=== PATIENT | female | born 1965 | race African-American/Black ===

== ENCOUNTER → 2016-11-18 | Outpatient (CLI) | payer BC ==
[2014-10-05 14:52] VITALS: BP 148/86
[~2016-11-18] MED LIST: TRIA1CAP3 PO
--- NOTE | 2016-11-18 13:19 | KCIC ---
Ultrasound thyroid Indication: Thyroid nodule Technique: Multiple real-time grayscale sonographic images were obtained over the thyroid. Findings: The right lobe of the thyroid measures 4.5 x 1.7 x 1.6 centimeters. There are several very small hypoechoic cystic nodules likely representing colloid cysts. The lobe measures 4.4 x 1.5 x 1.7 centimeters. There is a hypoechoic knee nodule within internal cystic component that measures 2.1 x 1.4 x 1.7 centimeters. Some internal blood flow is noted within the solid components. The isthmus measures 3 millimeters. Impression: - There is 2.1 centimeter hypoechoic solid nodule with internal cystic component in the inferior pole of the left lobe of the thyroid. Follow-up or biopsy is recommended. Electronically signed by: Daniel Wilson (Nov 18, 2016 13:17:58)
--- NOTE | 2016-11-18 13:26 | KCIC ---
Ultrasound Pelvis Indication:Reason For Study Reason: F/U FIBROIDS PREV IMAGING AT [facility] / [facility]. Instructions: / History: Technique: Multiple real-time grayscale images were obtained over the pelvis . Color Doppler imaging was utilized. Findings: The uterus is enlarged measuring 22.4 x 8.8 x 9.0 cm. There are numerous myometrial masses likely representing fibroids, the largest of which is seen in the right fundus measuring 11.7 centimeters. A lower uterine segment fibroid measures 10 centimeters. The endometrium is also within normal limits measuring 11 mm in thickness. The ovaries are not identified. No pelvic free fluid is identified. Impression: - Enlarged fibroid uterus. Electronically signed by: Daniel Wilson (Nov 18, 2016 13:23:42)
== END | disposition home or self-care (01) ==
LOC: KCIC US 12:09
PROVIDERS: ATTEND Internal Medicine
DX: R19.00 Intra-abdominal and pelvic swelling, mass and lump, unspecified site (principal); D25.9 Leiomyoma of uterus, unspecified
CPT/HCPCS: 76536; 76856

== ENCOUNTER → 2017-04-04 | Outpatient (CLI) | payer BC ==
[2014-10-05 14:52] VITALS: BP 148/86
--- NOTE | 2017-04-04 17:55 | CARD ---
APPROVED REPORT EXAM: Two-dimensional and M-mode echocardiogram with Doppler and color Doppler. Other Information Quality : GoodHR: 85bpm Rhythm : NSR INDICATION Tricuspid regurgitation RISK FACTORS Hypertension Obesity 2D DIMENSIONS RVDd3.6 (2.9-3.5cm)Left Atrium(2D)3.6 (1.6-4.0cm) IVSd0.9 (0.7-1.1cm)Aortic Root(2D)2.9 (2.0-3.7cm) LVDd4.1 (3.9-5.9cm)LVOT Diameter2.3 (1.8-2.4cm) PWd0.9 (0.7-1.1cm)LVDs2.9 (2.5-4.0cm) FS (%) 30.0 %SV42.6 ml LVEF(%)57.7 (>50%) Aortic Valve AoV Peak Agustín.195.6cm/sAoV VTI35.5cm AO Peak GR.15.3mmHgLVOT Peak Agustín.139.9cm/s AO Mean GR.7mmHgAVA (VMAX)3.01cm2 Mitral Valve MV E Jnfzcwdw711.9cm/sMV E Peak Gr.5mmHg MV DECEL [id number] A Kjhbxudz44.6cm/s MV E Mean Gr.2mmHgE/A Ratio1.5 MV A Qjgyyvlo30md Pulmonary Valve PV Peak Ihzzxeaj801.3cm/s Tricuspid Valve TR P. Rbqihruv424zi/sTR Peak Gr.29mmHg Pulmonary Vein S1 Zmgcmvdw74.6cm/sD2 Dthpppmd68.9cm/s PVa [id number] LEFT VENTRICLE The left ventricle is normal size. There is normal left ventricular wall thickness. The left ventricu lar systolic function is normal and the ejection fraction is within normal range. The Ejection Fracti on is 60-65%. There is normal LV segmental wall motion. The left ventricular diastolic function and f illing is normal for age. RIGHT VENTRICLE The right ventricle is normal size. There is normal right ventricular wall thickness. The right ventr icular systolic function is normal. ATRIA The left atrium size is normal. The right atrium size is normal. The interatrial septum is intact wit h no evidence for an atrial septal defect or patent foramen ovale as noted on 2-D or Doppler imaging. AORTIC VALVE The aortic valve is normal in structure and function. The aortic valve is trileaflet. Doppler and Col or Flow revealed no significant aortic regurgitation. There is no significant aortic valvular stenosi s. MITRAL VALVE The mitral valve is normal in structure and function. There is no evidence of mitral valve prolapse. There is no mitral valve stenosis. Doppler and Color Flow revealed no mitral valve regurgitation note d. TRICUSPID VALVE Doppler and Color Flow revealed mild tricuspid regurgitation. The pulmonary artery systolic pressure is estimated at 32 mmHg. PULMONIC VALVE The pulmonic valve is not well visualized but appears to open well. Doppler and Color Flow revealed n o pulmonic valvular regurgitation. There is no pulmonic valvular stenosis by spectral Doppler. GREAT VESSELS The aortic root is normal in size. The ascending aorta is normal in size. The IVC is normal in size a nd collapses >50% with inspiration. PERICARDIAL EFFUSION There is no evidence of significant pericardial effusion. Critical Notification Critical Value: No <Conclusion> The left ventricular systolic function is normal and the ejection fraction is within normal range. The Ejection Fraction is 60-65%.
== END | disposition home or self-care (01) ==
LOC: ECHO 13:56
PROVIDERS: ATTEND Physician Assistant Surgical
DX: I07.1 Rheumatic tricuspid insufficiency (principal)
CPT/HCPCS: 93306